=== PATIENT | male | born 1980 | race Caucasian/White ===

== ENCOUNTER → 2018-04-01 | Outpatient (CLI) | payer BC, OTHER ==
--- NOTE | 2018-04-01 14:08 | DIAGNOSTIC IMAGING REPORT ---
R KNEE 1 OR 2 VIEWS ROUTINE CLINICAL HISTORY: Right knee pain. COMPARISON: None FINDINGS: Alignment of the right knee is anatomic. No fracture or joint effusion is noted. Joint spaces are preserved. No osseous lesion is noted. IMPRESSION: No significant abnormality of the right knee. Electronically signed by: Mukund Russell M.D. 04/01/2018 2:07 PM Dictated Date/Time: 04/01/2018 2:06 PM
--- NOTE | 2018-04-01 14:09 | DIAGNOSTIC IMAGING REPORT ---
ANKLE MIN 3 VIEWS ROUTINE CLINICAL HISTORY: Left ankle pain. COMPARISON: None FINDINGS: Alignment of the left ankle is anatomic. No fracture is noted. No osseous lesion is noted. Talar dome is intact. Mild plantar and posterior calcaneal spurring is noted. IMPRESSION: 1. No acute fracture or dislocation of the left ankle. 2. Mild posterior and plantar calcaneal spurring. Electronically signed by: Mukund Russell M.D. 04/01/2018 2:07 PM Dictated Date/Time: 04/01/2018 2:07 PM
== END | disposition home or self-care (01) ==
LOC: C.RAD 13:34
PROVIDERS: ATTEND Family Medicine
DX: M25.561 Pain in right knee (principal)